=== PATIENT | male | born 1980 | race Two or more races ===

== ENCOUNTER 2017-12-02 13:08 | Emergency (ER) | payer SELFPAY ==
[2017-12-02 13:28] VITALS: BP 150/85; PULSE 74; TEMP 98.6; BMI 29.5
[2017-12-02 16:24] LABS: URINE APPEARANCE CLEAR; URINE BILIRUBIN NEGATIVE (NEGATIVE); URINE BLOOD NEGATIVE (NEGATIVE); URINE COLOR COLORLESS; URINE GLUCOSE (UA) NEGATIVE (NEGATIVE); URINE KETONE NEGATIVE (NEGATIVE); URINE LEUK ESTERASE NEGATIVE (NEGATIVE); URINE NITRITE NEGATIVE (NEGATIVE); URINE PROTEIN NEGATIVE (NEGATIVE); URINE UROBILINOGEN NEGATIVE mg/dL (0.2-1.0)
--- NOTE | 2017-12-02 16:24 | PDOC ---
History of Present Illness - General Chief Complaint: Cold Symptoms Stated Complaint: SORE THROAT, COUGH Time Seen by Provider: 12/02/17 15:15 History Source: Patient Exam Limitations: No Limitations - History of Present Illness Initial Comments: 12/02/17 16:25 37 y/o male presents to the ED with c/o sore throat x 3 days and llq pain without hematuria, frequency, back pain, or penile complaints x 2 weeks. Patient denies fever, chills, abdominal distention, diarrhea, headache, difficulty swallowing, cough or shortness of breath. Timing/Duration: reports: other Severity: reports: mild Associated Symptoms: reports: sore throat Past History - Past Medical History Allergies/Adverse Reactions: Allergies Allergy/AdvReac Type Severity Reaction Status Date / Time No Known Allergies Allergy Verified 12/02/17 13:21 Home Medications: Ambulatory Orders NK [No Known Home Medication] 12/02/17 COPD: No Other medical history: denies - Suicide/Smoking/Psychosocial Hx Smoking History: Current some day smoker Number of Cigarettes Smoked Daily: 5 Information on smoking cessation initiated: Yes Hx Alcohol Use: Yes (q2d) Drug/Substance Use Hx: No Substance Use Type: None Patient Lives Alone: No Lives with/in: parents Review of Systems - Review of Systems Able to Perform ROS?: Yes Constitutional: No: Symptoms Reported HEENTM: Yes: Throat Pain Respiratory: No: Symptoms reported Cardiac (ROS): No: Symptoms Reported ABD/GI: Yes: Abdominal cramping. No: Nausea, Vomiting : No: Symptoms Reported Musculoskeletal: No: Symptoms Reported Integumentary: No: Symptoms Reported Neurological: No: Symptoms reported Endocrine: No: Symptoms Reported Hematologic/Lymphatic: No: Symptoms Reported *Physical Exam - Vital Signs Last Vital Signs Temp Pulse Resp BP Pulse Ox 98.6 F 74 19 150/85 98 12/02/17 13:19 12/02/17 13:19 12/02/17 13:19 12/02/17 13:19 12/02/17 13:19 - Physical Exam General Appearance: Yes: Nourished, Appropriately Dressed. No: Apparent Distress HEENT: positive: EOMI, SIMÓN, TMs Normal, Pharynx Normal. negative: Pale Conjunctivae Neck: positive: Normal Thyroid, Supple. negative: Lymphadenopathy (R), Lymphadenopathy (L) Respiratory/Chest: positive: Lungs Clear, Normal Breath Sounds. negative: Respiratory Distress, Accessory Muscle Use Cardiovascular: positive: Regular Rhythm, Regular Rate. negative: Murmur Gastrointestinal/Abdominal: positive: Soft, Tenderness (mild llq. ) Male Genitalia: positive: normal genitalia Musculoskeletal: negative: CVA Tenderness Integumentary: positive: Normal Color, Warm, Moist Medical Decision Making - Medical Decision Making 12/02/17 16:35 Patient with sore throat complaints of normal of the lower quadrant pain. Patient with a rapid shaft and urinalysis with culture. 12/02/17 16:44 Laboratory Tests 12/02/17 16:12 Urine Ketones Negative Urine Blood Negative Urine Nitrite Negative Ur Leukocyte Esterase Negative rapid strep sent. *DC/Admit/Observation/Transfer Diagnosis at time of Disposition: Sore throat - Discharge Dispostion Disposition: HOME Condition at time of disposition: Good - Referrals - Patient Instructions Printed Discharge Instructions: Sore Throat Additional Instructions: Please take motrin for pain. Drink plenty of fluids. - Post Discharge Activity
== END 2017-12-02 16:51 | disposition home or self-care (01) ==
LOC: JERFT 13:08
DX: J02.9 Acute pharyngitis, unspecified (principal)
CPT/HCPCS: 81003; 87070; 87430; 99281-25